=== PATIENT | male | born 1970 | race Caucasian/White ===

== ENCOUNTER → 2024-06-10 | Outpatient (CLI) | payer OTHER, SELFPAY ==
--- NOTE | 2024-06-10 12:06 | DI.ECHO.S_ITS ---
[address] [address] Name: PALOMA STRINGER Study Date: 06/10/2024 Height: 74 in Hospital ReadingLocation: Weight: 280 lb Gender: Male BSA: 2.5?m2 : 1970 Age: 54 yrs BP: 110/82 mmHg Reason For Study: HEART CONDITION Ordering Physician: PALOMA OJEDA Performed By: Brendon Ortiz Referring: PALOMA OJEDA 1. The left ventricle contractility is normal. Estimated ejection fraction is greater than 55% with no segmental wall motion abnormalities. Mild concentric LVH. Grade 1 diastolic dysfunction. 2. The right ventricular contractility is normal. 3. All cardiac chambers are of normal size. 4. No significant valvular abnormalities. 5. No obvious intracardiac shunts. 6. No obvious intra masses nor thrombi. 7. No hemodynamically significant pericardial effusion. 8. Low right-sided filling pressures. Conclusion: Normal biventricular systolic function with no significant valvular abnormalities. Procedure:?? A two-dimensional transthoracic echocardiogram with color flow and Doppler was performed. A contrast injection of Definity was performed to improve assessment of LV function. The study quality was technically adequate. There is no prior echocardiogram noted for this patient. The patient was in normal sinus rhythm during the exam. Left Ventricle:?? The left ventricle is normal in size. Left ventricular wall thickness is mildly increased. There is no ventricular septal defect visualized. The ejection fraction is estimated to be 55-60%. There are no focal wall motion abnormalities. Right Ventricle:?? The right ventricle is mildly dilated. The right ventricular systolic function is normal. Atria:?? The left atrial size is normal. Right atrial size is normal. There is no Doppler evidence for an atrial septal defect. Mitral Valve:?? The mitral valve is normal in structure and function. There is no mitral regurgitation. Aortic Valve:?? The aortic valve is trileaflet. The aortic valve opens well. The aortic valve is mildly calcified. No aortic regurgitation is present. Tricuspid Valve:?? The tricuspid valve is normal in structure and function. No tricuspid regurgitation. Pulmonic Valve:?? The pulmonic valve is normal in structure and function. There is trace pulmonic regurgitation. Great Vessels:?? The aortic root is normal size. The ascending aorta is at the upper limits of normal in size. The pulmonary artery is normal size. The IVC is of normal diameter and collapses greater than 50% with a sniff. This suggests a low right atrial pressure of 3 mm Hg. Pericardium/ Pleura?? There is no pericardial effusion. There is no pleural effusion. MMode/2D Measurements & Calculations LVIDd: 4.8?cm LVIDs: 3.4?cm FS: 29.6?% EPSS: 0.47?cm IVSd: 1.1?cm LVPWd: 1.2?cm LV loyola. diameter/BSA (cm/m^2): 1.9? LV sys. diameter/BSA (cm/m^2): 1.4? LVOT diam: 2.5?cm Ao root diam: 4.0?cm asc Aorta Diam: 3.9?cm Ao Arch Diam (Prox Trans): 3.1?cm LA A2 area: 24.5?cm2 LA A4 area: 21.8?cm2 LA length (vol): 6.0?cm LA vol: 75.7?ml LA vol index: 30.2?ml/m2 RA long axis: 4.7?cm RA area: 12.5?cm2 RA vol: 28.1?ml RA : 11.2?ml/m2 IVC diam: 2.0?cm RVD1 (basal): 4.3?cm RVD2 (mid): 3.7?cm TAPSE: 2.6?cm Ao V2 max: 132.4?cm/sec Ao V2 mean: 90.6?cm/sec Ao max P.0?mmHg Ao mean P.8?mmHg Ao V2 VTI: 25.6?cm LVOT Max Macario: 101.2?cm/sec LV V1 max P.1?mmHg LV V1 VTI: 21.4?cm TONI(I,D): 4.0?cm2 TONI(V,D): 3.7?cm2 sev ratio: 0.84? TONI indexed to BSA (cm^2/m^2): 1.6? MV E max macario: 61.3?cm/sec MV A max macario: 78.8?cm/sec MV E/A: 0.78? Med Peak E' Macario: 6.6?cm/sec E/E' med: 9.3? Lat Peak E' Macario: 10.7?cm/sec E/E' lat: 5.7? E/e' average: 7.5? MV dec time: 0.20?sec PA V2 max: 100.3?cm/sec PA V2 mean: 73.9?cm/sec PA mean P.4?mmHg PA pr(Accel): 32.8?mmHg SV(LVOT): 103.3?ml Reading Physician:
== END ==
PROVIDERS: PCP Internal Medicine; Referring Provider Orthopaedic Surgery; Visit Provider Orthopaedic Surgery
DX: Z00.00 Encounter for general adult medical examination without abnormal findings (principal)
CPT/HCPCS: C8929; Q9957